=== PATIENT | female | born 1945 | race Caucasian/White ===

== ENCOUNTER 2022-08-22 08:14 | Day surgery (SDC) | payer MEDICARE, BC ==
[2022-08-21 09:42] VITALS: BMI 30.9
[2022-08-22] MEDS ORDERED: PROPOFOL 20 ML ONE (09:06)
== END 2022-08-22 10:16 | disposition home or self-care (01) ==
LOC: CSHSDC 08:14
PROVIDERS: ATTEND Internal Medicine Gastroenterology
PROC: 0DJD8ZZ Inspection of Lower Intestinal Tract, Via Natural or Artificial Opening Endoscopic (ICD-10-PCS; principal; 2022-08-22)
DX: Z12.11 Encounter for screening for malignant neoplasm of colon (principal); K57.30 Diverticulosis of large intestine without perforation or abscess without bleeding; K64.9 Unspecified hemorrhoids; Z87.19 Personal history of other diseases of the digestive system; I10 Essential (primary) hypertension; E78.5 Hyperlipidemia, unspecified; J30.2 Other seasonal allergic rhinitis; Z88.2 Allergy status to sulfonamides; Z87.891 Personal history of nicotine dependence; Z90.49 Acquired absence of other specified parts of digestive tract; Z90.710 Acquired absence of both cervix and uterus; Z98.890 Other specified postprocedural states
CPT/HCPCS: J2704

== ENCOUNTER 2023-12-08 12:27 | Outpatient (CLI) | payer MEDICARE, BC | END 2023-12-08 12:28 | disposition home or self-care (01) | LOC: CSHMAMMO 12:27 | PROVIDERS: ATTEND Family Medicine | DX: Z12.31 Encounter for screening mammogram for malignant neoplasm of breast (principal) | CPT/HCPCS: 77063; 77067 ==

== ENCOUNTER 2023-12-08 13:19 | Outpatient (CLI) | payer MEDICARE, BC | END 2023-12-08 13:20 | disposition home or self-care (01) | LOC: CSHCT 13:19 | PROVIDERS: ATTEND Family Medicine | DX: Z12.2 Encounter for screening for malignant neoplasm of respiratory organs (principal); Z87.891 Personal history of nicotine dependence | CPT/HCPCS: 71271 ==

== ENCOUNTER 2024-08-23 10:02 | Outpatient (CLI) | payer MEDICARE, BC | END 2024-08-23 10:03 | disposition home or self-care (01) | LOC: CSHCT 10:02 | PROVIDERS: ATTEND Optometrist | DX: S02.3 Fracture of orbital floor (principal); Z98.890 Other specified postprocedural states | CPT/HCPCS: 70480 ==